=== PATIENT | female | born 1970 ===

== ENCOUNTER → 2017-10-27 | Outpatient (CLI) | payer MEDICAID | LOC: SBRMNEURO 21:00 | PROVIDERS: ATTEND Psychiatry & Neurology Sleep Medicine | DX: G47.33 Obstructive sleep apnea (adult) (pediatric) (principal); G47.34 Idiopathic sleep related nonobstructive alveolar hypoventilation ==

== ENCOUNTER → 2018-02-20 | Outpatient (CLI) | payer MEDICAID | LOC: SBRMNEURO 21:00 | PROVIDERS: ATTEND Psychiatry & Neurology Sleep Medicine | DX: G47.33 Obstructive sleep apnea (adult) (pediatric) (principal) ==

== ENCOUNTER → 2018-07-04 | Outpatient (CLI) | payer MEDICAID ==
--- NOTE | 2018-07-04 12:20 | CPEEG ---
ELECTROENCEPHALOGRAM. DATE OF STUDY: 07/04/2018 INTERPRETATION: This EEG is abnormal due to the presence of generalized atypical spike and wave discharges. 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 The patient did not have any clinical events or apparent electrographic seizures during the study. REPORT: This EEG contains 10 Hz alpha activity to the posterior head regions. The primary feature of this recording was the presence of generalized atypical spike and wave discharges present at baseline. These typically were 4-5 hertz in frequency and lasted around 1 second on average. There was additional activation with photic stimulation (photoparoxysmal response) and hyperventilation. The patient went on to become drowsy and fall asleep during the study. During drowsiness and sleep, there was continued activation of generalized atypical spike and wave discharges. There were no apparent electrographic seizures recorded during the study. /[id number]/MODL MTDD
== END ==
LOC: FCPNEURO 07:47
PROVIDERS: ATTEND Psychiatry & Neurology Neurology
DX: G40.909 Epilepsy, unspecified, not intractable, without status epilepticus (principal)